=== PATIENT | male | born 1960 | race Two or more races ===

== ENCOUNTER 2024-07-12 14:32 | Inpatient (IN) | payer MEDICAID, OTHER ==
[~2024-07-12] VITALS: Ht 177.8 cm; Wt 94.1 kg
[2024-07-12 15:05] VITALS: PULSE 92; RESP 16; O2SAT 97
[2024-07-12 15:38] LABS: Basophils # (auto) 0 10 ^3/uL (0-0.2); Basophils % (auto) 0.4 % (0.0-2.0); Eosinophils # (auto) 0.1 10 ^3/uL (0-0.8); Eosinophils % (auto) 0.8 % (0.0-7.0); Hematocrit 43.4 % (41.0-53.0); Hemoglobin 14.6 g/dL (13.5-17.5); Lymphocytes # (auto) 1.6 10 ^3/uL (0.4-5.4); Lymphocytes % (auto) 22.8 % (10.0-50.0); Mean Corpuscular Hemoglobin 28.7 pg (28.0-32.0); Mean Corpuscular Hgb Conc. 33.6 g/dL (32.0-36.0); Mean Corpuscular Volume 85.3 fL (80.0-100.0); Monocytes # (auto) 0.5 10 ^3/uL (0-1.3); Monocytes % (auto) 6.8 % (0.0-12.0); Neutrophils # (auto) 4.9 10 ^3/uL (1.6-8.6); Neutrophils % (auto) 69.2 % (37.0-80.0); Nucleated Red Blood Cells % 0.1 %; Platelet Count (auto) 196 10^3/uL (140-450); Red Blood Cells 5.09 10^6/uL (4.5-5.90); Red Cell Distribution Width 14.6 % (11.8-14.3)
[2024-07-12 15:45] LABS: Chloride 108 mmol/L (98-107); Potassium 3.8 mmol/L (3.5-5.1); Sodium 141 mmol/L (136-145)
[2024-07-12 15:46] LABS: Anion Gap 4 (5-15); Calcium 9.2 mg/dL (8.7-10.4); Carbon Dioxide 29 mmol/L (20-31)
[2024-07-12 15:51] LABS: BUN/Creatinine Ratio 10.6 (10.0-20.0); Blood Urea Nitrogen 16 mg/dL (9-23); Glucose 110 mg/dL (74-106)
[2024-07-12 19:39] VITALS: PULSE 97; RESP 11; O2SAT 95
[2024-07-13] VITALS (7 sets, daily range): BP systolic 133–147; BP diastolic 68–91; PULSE 68–92; RESP 18–19; TEMP 97.9–100.4; O2SAT 96–98
[2024-07-13] MEDS ORDERED: ONDANSETRON HCL 4 MG/2 ML VIAL IV PRN
[2024-07-13] MEDS ORDERED: ACETAMINOPHEN 325 MG TAB PO PRN
[2024-07-13 09:09] LABS: Chloride 105 mmol/L (98-107); Potassium 3.7 mmol/L (3.5-5.1); Sodium 139 mmol/L (136-145)
[2024-07-13 09:10] LABS: Anion Gap 6 (5-15); Calcium 9.8 mg/dL (8.7-10.4); Carbon Dioxide 28 mmol/L (20-31)
[2024-07-13 09:15] LABS: BUN/Creatinine Ratio 13.3 (10.0-20.0); Blood Urea Nitrogen 16 mg/dL (9-23); Glucose 92 mg/dL (74-106)
[2024-07-13] MEDS: ENOXAPARIN SOD 40 MG/0.4 ML SYRINGE SC SCH (09:34)
[2024-07-13] MEDS: amLODIPine BESYLATE 5 MG TAB PO SCH (09:34)
[2024-07-13] MEDS: DONEPEZIL HYDROCHLORIDE 5 MG TAB PO SCH (22:17)
[2024-07-14 05:00] VITALS: BP 148/84; PULSE 77; RESP 16; TEMP 99.3; O2SAT 98
[2024-07-14 09:00] VITALS: BP 135/77; PULSE 88; RESP 17; TEMP 99.4; O2SAT 97
[2024-07-14 12:38] VITALS: BP 139/83; PULSE 83; RESP 17; TEMP 98.5; O2SAT 96
[2024-07-14 16:43] VITALS: BP 127/73; PULSE 82; RESP 16; TEMP 99.2; O2SAT 98
[2024-07-14 20:00] VITALS: PULSE 82; RESP 16; O2SAT 98
[2024-07-14] MEDS ORDERED: HALOPERIDOL LACTATE 5 MG/ML INJ VIAL IM PRN (21:15)
[2024-07-14 22:00] VITALS: BP 144/85; PULSE 102; RESP 19; TEMP 98.9; O2SAT 98
[2024-07-14 23:18] LABS: Folate (Folic Acid) 12.34 ng/mL (>5.38)
[2024-07-14 23:19] LABS: Free T4 (Free Thyroxine) 0.99 ng/dL (0.89-1.76)
[2024-07-15 05:00] VITALS: BP 151/89; PULSE 81; RESP 18; TEMP 99; O2SAT 96
[2024-07-15 08:42] VITALS: BP 141/79; PULSE 79; RESP 19; TEMP 98.6; O2SAT 98
[2024-07-15] MEDS ORDERED: DONE10TA9 PO (09:40)
[2024-07-15] MEDS ORDERED: HYDR-2792 PO ×2 (09:49→09:50)
== END 2024-07-15 16:48 | disposition home health service (06) | DRG 42 ==
LOC: EDBD 14:32 → ER 14:36 → OVERFLOW 23:54 → EAST 07-13 02:05
PROVIDERS: ADMIT Nurse Practitioner; ATTEND Student in an Organized Health Care Education/Training Program
DX: G91.0 Communicating hydrocephalus (principal); G93.41 Metabolic encephalopathy; F02.80 Dementia in other diseases classified elsewhere, unspecified severity, without behavioral disturbance, psychotic disturbance, mood disturbance, and anxiety; G30.9 Alzheimer's disease, unspecified; I10 Essential (primary) hypertension; R32 Unspecified urinary incontinence; Z79.899 Other long term (current) drug therapy; Z82.49 Family history of ischemic heart disease and other diseases of the circulatory system; Z81.8 Family history of other mental and behavioral disorders
CPT/HCPCS: 36415; 70450; 71045; 80048; 82607; 82746; 84439; 84443; 84484; 85025; 97163; 99291; G0378